=== PATIENT | female | born 1980 | race Caucasian/White ===

== ENCOUNTER 2021-10-26 02:48 | Inpatient (IN) | payer MEDICAID ==
[2021-10-26] MEDS ORDERED: Acetaminophen 500 MG TAB ONE (03:06)
[2021-10-26] MEDS ORDERED: cefTRIAXone\\ROCEPHIN 1 GM VIAL ONE (03:07)
[2021-10-26 03:13] LABS: #Eosinphils 0.2 10x3/uL (0.0-0.5); #Monocytes 0.9 10x3/uL (0.0-1.1); #Neutrophils 7.3 10x3/uL (1.5-8.4); %Basophils 0.4 % (0.0-2.0); %Lymphocytes 14.8 % (18.0-47.0); %Monocytes 9.1 % (0.0-10.0); %Neutrophils 73.2 % (40.0-75.0); Hemoglobin 13.7 g/dL (12.0-15.5); Mean Corpuscular HGB CONC 29.8 g/dL (32.0-36.0); Mean Corpuscular Hemoglobin 26.5 pg (27.0-33.0); Mean Corpuscular Volume 88.8 fl (81.6-98.3); Mean Platelet Volume 11.3 fl (7.4-10.4); Platelet Count 215 10x3/uL (150-450); RBC Distribution Width 15.9 % (11.5-14.5); Red Blood Cell (RBC) Count 5.17 10x6/uL (3.90-5.03)
[2021-10-26 03:28] LABS: ALT (SGPT) 20 U/L (8-55); AST (SGOT) 23 U/L (5-34); Albumin 3.8 g/dL (3.5-5.0); Alkaline Phosphatase 69 U/L (40-110); Anion Gap 11 mmol/L (10-20); BUN (Urea Nitrogen) 12 mg/dL (7.0-18.7); Bilirubin, Total 0.6 mg/dL (0.2-1.2); Calc. Creatinine Clearance 0 mL/min (70-130); Calcium 8.7 mg/dL (7.8-10.44); Carbon Dioxide 29 mmol/L (22-29); Chloride 101 mmol/L (98-107); Globulin 3.4 g/dL (2.4-3.5); Glucose 143 mg/dL (70-105); Protein, Total 7.2 g/dL (6.0-8.3); Sodium 137 mmol/L (136-145)
[2021-10-26 03:30] LABS: Platelet Morphology Comment Appears Adequate; RBC Morphology Normal
[2021-10-26] MEDS ORDERED: Aspirin Chewable 81 MG TAB ONE (03:42)
[2021-10-26] MEDS ORDERED: Enoxaparin Sodium 60 MG/0.6 ML SYRINGE ONE (03:42)
[2021-10-26] MEDS ORDERED: Azithromycin 500 MG VIAL ONE (03:42)
[2021-10-26] MEDS ORDERED: Enoxaparin Sodium 100 MG/ML SYRINGE ONE (03:42)
[2021-10-26 03:49] LABS: CKMB 6.1 ng/mL (0-6.6)
[2021-10-26] MEDS ORDERED: methylPREDNISolone Sod Succ/PF 125 MG/2 ML VIAL ONE (04:32)
[2021-10-26] MEDS ORDERED: Senokot S 8.6-50 MG TAB PO PRN (04:59)
[2021-10-26] MEDS ORDERED: Calcium Carbonate 500 MG ChewTAB PO PRN (04:59)
[2021-10-26] MEDS ORDERED: Ondansetron PF 4 MG/2 ML Vial IVP PRN (04:59)
[2021-10-26] MEDS ORDERED: Guaifenesin DM 100-10/5 ML UDCUP PO PRN (04:59)
[2021-10-26 05:04] LABS: SARS-CoV-2 NAA Rapid Test DETECTED (NotDetected)
[2021-10-26 07:52] VITALS: BMI 79.6
[2021-10-26] MEDS: Benzonatate 100 MG CAP PO SCH ×3 (08:31→20:45)
[2021-10-26] MEDS: Aspirin 81 mg Enteric Coated Tablet PO SCH (08:31)
[2021-10-26] MEDS: Furosemide 20 MG TAB PO SCH (08:32)
[2021-10-26] MEDS: Dexamethasone 20 MG/5 ML VIAL SLOW IVP SCH ×2 (08:32→20:45)
[2021-10-26] MEDS: Pantoprazole 40 MG VIAL IVP SCH (08:32)
[2021-10-26] MEDS: Losartan Potassium 50 MG TAB PO SCH (08:32)
[2021-10-26] MEDS ORDERED: Famotidine/PF 20 mg/2ml Vial SLOW IVP SCH (09:00)
[2021-10-26] MEDS ORDERED: Dexamethasone 4 mg/ml Vial SLOW IVP SCH (09:00)
[2021-10-26 09:53] LABS: CKMB 6.6 ng/mL (0-6.6)
[2021-10-26] MEDS ORDERED: [UNRECOGNIZED DRUG - REMARK] FS SCH (11:15)
[2021-10-26] MEDS ORDERED: [UNRECOGNIZED DRUG - REMARK] FS SCH (11:15)
[2021-10-26] MEDS: Ventolin HFA Inhaler 60 PUFF INHALER INH SCH ×4 (11:23→22:53)
[2021-10-26] MEDS ORDERED: methylPREDNISolone Sod Succ/PF 125 MG/2 ML VIAL IVP SCH (12:00)
[2021-10-26] MEDS ORDERED: Iopamidol 370 76% 100 ML VIAL ONE (12:38)
[2021-10-26 14:03] LABS: Legionella Urinary Ag Negative (Negative); Strep pneumo Urine Ag NEGATIVE (NEGATIVE)
[2021-10-26] MEDS: Enoxaparin Sodium 40 MG/0.4 ML SYRINGE SC SCH (20:45)
[2021-10-26] MEDS: Acetaminophen 325 MG TAB PO PRN (21:10)
[2021-10-27] MEDS: Ventolin HFA Inhaler 60 PUFF INHALER INH SCH ×6 (03:30→22:56)
[2021-10-27] MEDS ORDERED: cefTRIAXone\\ROCEPHIN 2 GM in Sodium Chloride 0.9% 100 ML IVPB SCH (04:00)
[2021-10-27 05:19] LABS: #Monocytes 0.5 10x3/uL (0.0-1.1); #Neutrophils 7.7 10x3/uL (1.5-8.4); %Basophils 0.3 % (0.0-2.0); %Lymphocytes 7.2 % (18.0-47.0); %Monocytes 5.5 % (0.0-10.0); %Neutrophils 83.6 % (40.0-75.0); Hemoglobin 12.8 g/dL (12.0-15.5); Mean Corpuscular Hemoglobin 26.2 pg (27.0-33.0); Mean Corpuscular Volume 90.4 fl (81.6-98.3); Mean Platelet Volume 11.5 fl (7.4-10.4); Platelet Count 217 10x3/uL (150-450); RBC Distribution Width 15.7 % (11.5-14.5); Red Blood Cell (RBC) Count 4.88 10x6/uL (3.90-5.03); White Blood Cell (WBC) Count 9.2 10x3/uL (3.5-10.5)
[2021-10-27 05:27] LABS: Anion Gap 13 mmol/L (10-20); BUN (Urea Nitrogen) 13 mg/dL (7.0-18.7); Calc. Creatinine Clearance 278 mL/min (70-130); Calcium 8.5 mg/dL (7.8-10.44); Carbon Dioxide 32 mmol/L (22-29); Chloride 100 mmol/L (98-107); Estimated GFR 105; Glucose 219 mg/dL (70-105); Potassium 5.2 mmol/L (3.5-5.1); Sodium 140 mmol/L (136-145)
[2021-10-27 05:46] LABS: Basophilic Stippling SLIGHT = 1-2 cells (100X) (None Seen); Hypochromia SLIGHT = 6-15 cells (100X) (0-5/hpf); Platelet Morphology Comment Appears Adequate
[2021-10-27] MEDS: Azithromycin 500 MG in Sodium Chloride 0.9% 250 ML 250 ML IVPB SCH (06:32)
[2021-10-27] MEDS: Furosemide 20 MG TAB PO SCH (08:22)
[2021-10-27] MEDS: Benzonatate 100 MG CAP PO SCH ×3 (08:22→20:25)
[2021-10-27] MEDS: Pantoprazole 40 MG VIAL IVP SCH (08:22)
[2021-10-27] MEDS: Dexamethasone 20 MG/5 ML VIAL SLOW IVP SCH ×2 (08:22→20:25)
[2021-10-27] MEDS: Aspirin 81 mg Enteric Coated Tablet PO SCH (08:23)
[2021-10-27] MEDS ORDERED: NIFEdipine XL 60 MG TAB PO SCH (11:00)
[2021-10-27 12:46] LABS: Hemoglobin A1c 5.9 % (4.0-6.0)
[2021-10-27] MEDS: Enoxaparin Sodium 40 MG/0.4 ML SYRINGE SC SCH (20:25)
[2021-10-28] MEDS: Ventolin HFA Inhaler 60 PUFF INHALER INH SCH ×6 (02:59→22:38)
[2021-10-28 04:35] LABS: #Eosinphils 0.1 10x3/uL (0.0-0.5); #Monocytes 0.7 10x3/uL (0.0-1.1); %Basophils 0.3 % (0.0-2.0); %Eosinophils 0.7 % (0.0-6.0); %Lymphocytes 7.6 % (18.0-47.0); %Monocytes 5.5 % (0.0-10.0); %Neutrophils 84.3 % (40.0-75.0); Hemoglobin 13.2 g/dL (12.0-15.5); Mean Corpuscular HGB CONC 29.2 g/dL (32.0-36.0); Mean Corpuscular Hemoglobin 26.5 pg (27.0-33.0); Mean Corpuscular Volume 90.6 fl (81.6-98.3); Mean Platelet Volume 10.8 fl (7.4-10.4); Platelet Count 228 10x3/uL (150-450); RBC Distribution Width 15.5 % (11.5-14.5); Red Blood Cell (RBC) Count 4.99 10x6/uL (3.90-5.03); White Blood Cell (WBC) Count 11.8 10x3/uL (3.5-10.5)
[2021-10-28] MEDS: Azithromycin 500 MG in Sodium Chloride 0.9% 250 ML 250 ML IVPB SCH (04:59)
[2021-10-28 05:04] LABS: Anion Gap 14 mmol/L (10-20); BUN (Urea Nitrogen) 16 mg/dL (7.0-18.7); Calc. Creatinine Clearance 295 mL/min (70-130); Calcium 8.8 mg/dL (7.8-10.44); Carbon Dioxide 32 mmol/L (22-29); Chloride 98 mmol/L (98-107); Estimated GFR 113; Glucose 198 mg/dL (70-105); Potassium 5.1 mmol/L (3.5-5.1); Sodium 139 mmol/L (136-145)
[2021-10-28] MEDS: Furosemide 20 MG TAB PO SCH (08:54)
[2021-10-28] MEDS: NIFEdipine XL 60 MG TAB PO SCH (08:54)
[2021-10-28] MEDS: Losartan Potassium 50 MG TAB PO SCH (08:54)
[2021-10-28] MEDS: Benzonatate 100 MG CAP PO SCH ×3 (08:54→19:47)
[2021-10-28] MEDS: Dexamethasone 20 MG/5 ML VIAL SLOW IVP SCH ×2 (08:55→19:47)
[2021-10-28] MEDS: Aspirin 81 mg Enteric Coated Tablet PO SCH (08:55)
[2021-10-28] MEDS: Pantoprazole 40 MG VIAL IVP SCH (08:57)
[2021-10-28] MEDS: Acetaminophen 325 MG TAB PO PRN (12:17)
[2021-10-28] MEDS: Enoxaparin Sodium 40 MG/0.4 ML SYRINGE SC SCH (19:47)
[2021-10-29] MEDS: Ventolin HFA Inhaler 60 PUFF INHALER INH SCH ×6 (01:52→22:38)
[2021-10-29 04:43] LABS: Hemoglobin 13.2 g/dL (12.0-15.5); Mean Corpuscular HGB CONC 29.1 g/dL (32.0-36.0); Mean Corpuscular Hemoglobin 26.3 pg (27.0-33.0); Mean Corpuscular Volume 90.4 fl (81.6-98.3); Mean Platelet Volume 11.4 fl (7.4-10.4); Platelet Count 290 10x3/uL (150-450); RBC Distribution Width 15.3 % (11.5-14.5); Red Blood Cell (RBC) Count 5.02 10x6/uL (3.90-5.03); White Blood Cell (WBC) Count 11.7 10x3/uL (3.5-10.5)
[2021-10-29 04:51] LABS: Anion Gap 15 mmol/L (10-20); BUN (Urea Nitrogen) 19 mg/dL (7.0-18.7); Calc. Creatinine Clearance 279 mL/min (70-130); Calcium 8.9 mg/dL (7.8-10.44); Carbon Dioxide 37 mmol/L (22-29); Chloride 96 mmol/L (98-107); Estimated GFR 105; Glucose 175 mg/dL (70-105); Potassium 4.7 mmol/L (3.5-5.1); Sodium 143 mmol/L (136-145)
[2021-10-29 05:49] LABS: MDiff Complete? YES
[2021-10-29 05:51] LABS: Anisocytosis SLIGHT = 6-15 cells (100X) (0-5/hpf); Platelet Morphology Comment Appears Adequate; Stomatocytes SLIGHT = 2-5 cells (100X) (0-1/hpf)
[2021-10-29] MEDS: Azithromycin 500 MG in Sodium Chloride 0.9% 250 ML 250 ML IVPB SCH (05:52)
[2021-10-29 05:56] LABS: Band 4 % (5-11); Lymphocytes 12 % (21-51); Monocytes 6 % (0-10); Neutrophil 78 % (42-75)
[2021-10-29] MEDS: Pantoprazole 40 MG VIAL IVP SCH (08:24)
[2021-10-29] MEDS: Dexamethasone 20 MG/5 ML VIAL SLOW IVP SCH ×2 (08:24→21:26)
[2021-10-29] MEDS: Benzonatate 100 MG CAP PO SCH ×3 (08:25→21:26)
[2021-10-29] MEDS: Losartan Potassium 50 MG TAB PO SCH (08:25)
[2021-10-29] MEDS: Aspirin 81 mg Enteric Coated Tablet PO SCH (08:25)
[2021-10-29] MEDS: NIFEdipine XL 60 MG TAB PO SCH (08:25)
[2021-10-29] MEDS: Furosemide 20 MG TAB PO SCH (08:25)
[2021-10-29] MEDS ORDERED: hydrALAZINE 20 MG/ML VIAL SLOW IVP PRN (17:33)
[2021-10-29] MEDS: Enoxaparin Sodium 40 MG/0.4 ML SYRINGE SC SCH (21:25)
[2021-10-29] MEDS: Acetaminophen 325 MG TAB PO PRN (21:26)
[2021-10-30] MEDS: Ventolin HFA Inhaler 60 PUFF INHALER INH SCH ×6 (01:35→22:54)
[2021-10-30] MEDS: Azithromycin 500 MG in Sodium Chloride 0.9% 250 ML 250 ML IVPB SCH (05:16)
[2021-10-30 05:27] LABS: #Monocytes 0.8 10x3/uL (0.0-1.1); #Neutrophils 9.4 10x3/uL (1.5-8.4); %Basophils 0.3 % (0.0-2.0); %Lymphocytes 11.3 % (18.0-47.0); %Monocytes 6.5 % (0.0-10.0); %Neutrophils 79.9 % (40.0-75.0); Hemoglobin 13.7 g/dL (12.0-15.5); Mean Corpuscular Hemoglobin 26.2 pg (27.0-33.0); Mean Corpuscular Volume 87.2 fl (81.6-98.3); Mean Platelet Volume 10.9 fl (7.4-10.4); Platelet Count 318 10x3/uL (150-450); RBC Distribution Width 15.7 % (11.5-14.5); Red Blood Cell (RBC) Count 5.23 10x6/uL (3.90-5.03); White Blood Cell (WBC) Count 11.8 10x3/uL (3.5-10.5)
[2021-10-30 05:45] LABS: Anion Gap 16 mmol/L (10-20); BUN (Urea Nitrogen) 21 mg/dL (7.0-18.7); Calc. Creatinine Clearance 291 mL/min (70-130); Calcium 9.2 mg/dL (7.8-10.44); Carbon Dioxide 34 mmol/L (22-29); Chloride 96 mmol/L (98-107); Estimated GFR 111; Glucose 144 mg/dL (70-105); Sodium 141 mmol/L (136-145)
[2021-10-30] MEDS: Aspirin 81 mg Enteric Coated Tablet PO SCH (08:26)
[2021-10-30] MEDS: Furosemide 20 MG TAB PO SCH (08:26)
[2021-10-30] MEDS: Losartan Potassium 50 MG TAB PO SCH (08:26)
[2021-10-30] MEDS: Benzonatate 100 MG CAP PO SCH ×3 (08:26→20:02)
[2021-10-30] MEDS: Dexamethasone 20 MG/5 ML VIAL SLOW IVP SCH ×2 (08:26→20:01)
[2021-10-30] MEDS: NIFEdipine XL 60 MG TAB PO SCH (08:26)
[2021-10-30] MEDS: Pantoprazole 40 MG VIAL IVP SCH (08:27)
[2021-10-30 12:33] LABS: Hemoglobin A1c 5.9 % (4.0-6.0)
[2021-10-30] MEDS ORDERED: NIFEdipine XL 30 MG TAB PO SCH (16:30)
[2021-10-30] MEDS: cefTRIAXone\\ROCEPHIN 2 GM in Sodium Chloride 0.9% 100 ML IVPB SCH (17:03)
[2021-10-30] MEDS: Enoxaparin Sodium 40 MG/0.4 ML SYRINGE SC SCH (20:03)
[2021-10-31] MEDS: Ventolin HFA Inhaler 60 PUFF INHALER INH SCH ×5 (02:58→19:20)
[2021-10-31 04:14] LABS: Actual Bicarbonate (HCO3v) 35 mEq/L (22-28); Base Excess 8.8 mEq/L (-2.0 to +3.0); Calcium, Ionized (venous) 1.12 mmol/L (1.16-1.32); Chloride (VBG) 97 mmol/L (98-106); Hemoglobin (Hb) 15.3 g/dL (11.7-15.5); Potassium (VBG) 4.61 mmol/L (3.70-5.30); Puncture Site Other Site; Sodium 138.4 mmol/L (133-146); pH (venous) 7.43 (7.32-7.43)
[2021-10-31 04:31] LABS: #Monocytes 0.7 10x3/uL (0.0-1.1); %Basophils 0.2 % (0.0-2.0); %Eosinophils 0.1 % (0.0-6.0); %Lymphocytes 10.9 % (18.0-47.0); %Monocytes 5.9 % (0.0-10.0); %Neutrophils 80.5 % (40.0-75.0); Hemoglobin 14.3 g/dL (12.0-15.5); Mean Corpuscular HGB CONC 30.7 g/dL (32.0-36.0); Mean Corpuscular Hemoglobin 26.1 pg (27.0-33.0); Mean Corpuscular Volume 85.2 fl (81.6-98.3); Mean Platelet Volume 10.4 fl (7.4-10.4); Platelet Count 351 10x3/uL (150-450); RBC Distribution Width 15.4 % (11.5-14.5); Red Blood Cell (RBC) Count 5.47 10x6/uL (3.90-5.03); White Blood Cell (WBC) Count 12.4 10x3/uL (3.5-10.5)
[2021-10-31 04:57] LABS: ALT (SGPT) 27 U/L (8-55); AST (SGOT) 19 U/L (5-34); Albumin 3.6 g/dL (3.5-5.0); Alkaline Phosphatase 63 U/L (40-110); Anion Gap 15 mmol/L (10-20); BUN (Urea Nitrogen) 23 mg/dL (7.0-18.7); Bilirubin, Direct 0.2 mg/dL (0.1-0.3); Bilirubin, Total 0.5 mg/dL (0.2-1.2); CRP (Inflammatory) Less than 0.50 mg/dL (= or < 0.5); Calc. Creatinine Clearance 271 mL/min (70-130); Calcium 9.2 mg/dL (7.8-10.44); Carbon Dioxide 36 mmol/L (22-29); Cardiac Risk 4.1 (Less than 4.5); Chloride 96 mmol/L (98-107); Cholesterol 180 mg/dl (< 200 Desired); Estimated GFR 102; Glucose 151 mg/dL (70-105); HDL Cholesterol 44 mg/dL (>60 Neg Risk); LDL Cholesterol, Calculated 119 mg/dL; Magnesium 2.1 mg/dL (1.6-2.6); Potassium 4.7 mmol/L (3.5-5.1); Sodium 142 mmol/L (136-145); Triglycerides 83 mg/dL (Less than 150)
[2021-10-31] MEDS: Azithromycin 500 MG in Sodium Chloride 0.9% 250 ML 250 ML IVPB SCH (05:45)
[2021-10-31] MEDS: Losartan Potassium 50 MG TAB PO SCH (09:48)
[2021-10-31] MEDS: NIFEdipine XL 90 MG TAB PO SCH (09:48)
[2021-10-31] MEDS: Dexamethasone 20 MG/5 ML VIAL SLOW IVP SCH ×2 (09:48→20:19)
[2021-10-31] MEDS: Furosemide 20 MG TAB PO SCH (09:48)
[2021-10-31] MEDS: Pantoprazole 40 MG VIAL IVP SCH (09:48)
[2021-10-31] MEDS: Aspirin 81 mg Enteric Coated Tablet PO SCH (09:48)
[2021-10-31] MEDS: Benzonatate 100 MG CAP PO SCH ×3 (09:48→20:19)
[2021-10-31] MEDS: cefTRIAXone\\ROCEPHIN 2 GM in Sodium Chloride 0.9% 100 ML IVPB SCH (16:21)
[2021-10-31] MEDS: Acetaminophen 325 MG TAB PO PRN (16:21)
[2021-10-31] MEDS: Enoxaparin Sodium 40 MG/0.4 ML SYRINGE SC SCH (20:19)
[2021-11-01] MEDS: Ventolin HFA Inhaler 60 PUFF INHALER INH SCH ×5 (00:11→14:47)
[2021-11-01] MEDS ORDERED: Melatonin 3 MG TAB PO SCH (01:00)
[2021-11-01 04:20] LABS: Hemoglobin 14.1 g/dL (12.0-15.5); Mean Corpuscular HGB CONC 31.3 g/dL (32.0-36.0); Mean Corpuscular Hemoglobin 26.5 pg (27.0-33.0); Mean Corpuscular Volume 84.4 fl (81.6-98.3); Mean Platelet Volume 10.2 fl (7.4-10.4); Platelet Count 361 10x3/uL (150-450); RBC Distribution Width 15.3 % (11.5-14.5); Red Blood Cell (RBC) Count 5.33 10x6/uL (3.90-5.03); White Blood Cell (WBC) Count 13.3 10x3/uL (3.5-10.5)
[2021-11-01] MEDS: Azithromycin 500 MG in Sodium Chloride 0.9% 250 ML 250 ML IVPB SCH (04:33)
[2021-11-01 04:39] LABS: MDiff Complete? YES; Manual Diff?? YES
[2021-11-01 04:43] LABS: Anion Gap 16 mmol/L (10-20); BUN (Urea Nitrogen) 23 mg/dL (7.0-18.7); Band 1 % (5-11); Calc. Creatinine Clearance 275 mL/min (70-130); Calcium 8.9 mg/dL (7.8-10.44); Carbon Dioxide 33 mmol/L (22-29); Chloride 97 mmol/L (98-107); Estimated GFR 104; Glucose 162 mg/dL (70-105); Lymphocytes 7 % (21-51); Magnesium 2.2 mg/dL (1.6-2.6); Monocytes 7 % (0-10); Neutrophil 84 % (42-75); Potassium 4.5 mmol/L (3.5-5.1); Reactive Lymphocytes 1 % (0-10); Sodium 141 mmol/L (136-145)
[2021-11-01 04:44] LABS: Anisocytosis SLIGHT = 6-15 cells (100X) (0-5/hpf); Macrocytosis SLIGHT = 6-15 cells (100X) (0-5/hpf); Microcytosis SLIGHT = 6-15 cells (100X) (0-5/hpf); Platelet Morphology Comment Appears Adequate
[2021-11-01 04:45] LABS: Stomatocytes SLIGHT = 2-5 cells (100X) (0-1/hpf)
[2021-11-01] MEDS ORDERED: Amoxicillin/Potassium Clav 875 MG TAB PO SCH (09:00)
[2021-11-01] MEDS ORDERED: Dexamethasone 4 MG TAB PO SCH ×2 (09:15→17:00)
[2021-11-01] MEDS: Furosemide 20 MG TAB PO SCH (09:17)
[2021-11-01] MEDS: NIFEdipine XL 90 MG TAB PO SCH (09:17)
[2021-11-01] MEDS: Benzonatate 100 MG CAP PO SCH (09:17)
[2021-11-01] MEDS: Losartan Potassium 50 MG TAB PO SCH (09:17)
[2021-11-01] MEDS: Aspirin 81 mg Enteric Coated Tablet PO SCH (09:18)
[2021-11-01 12:15] VITALS: BP 122/55; TEMP 98.1
== END 2021-11-01 16:20 | disposition home or self-care (01) | DRG 871 ==
LOC: CSHERS 02:48 → CSHICU 07:30 → CSHTELE 10-29 19:53
PROVIDERS: ADMIT Internal Medicine; ATTEND Family Medicine
PROC: 8E0ZXY6 Isolation (ICD-10-PCS; principal; 2021-10-26)
PROC: 5A0945A Assistance with Respiratory Ventilation, 24-96 Consecutive Hours, High Flow/Velocity Cannula (ICD-10-PCS; 2021-10-26)
PROC: 3E03329 Introduction of Other Anti-infective into Peripheral Vein, Percutaneous Approach (ICD-10-PCS; 2021-10-26)
DX: A41.9 Sepsis, unspecified organism (principal); U07.1 COVID-19; J12.82 Pneumonia due to coronavirus disease 2019; J96.01 Acute respiratory failure with hypoxia; J45.21 Mild intermittent asthma with (acute) exacerbation; Z68.45 Body mass index [BMI] 70 or greater, adult; I50.32 Chronic diastolic (congestive) heart failure; R79.89 Other specified abnormal findings of blood chemistry; E66.01 Morbid (severe) obesity due to excess calories; R73.9 Hyperglycemia, unspecified; R65.20 Severe sepsis without septic shock; I11.0 Hypertensive heart disease with heart failure; E87.5 Hyperkalemia; Z86.16 Personal history of COVID-19; Z90.710 Acquired absence of both cervix and uterus; Z82.49 Family history of ischemic heart disease and other diseases of the circulatory system; Z80.1 Family history of malignant neoplasm of trachea, bronchus and lung; Z87.891 Personal history of nicotine dependence
CPT/HCPCS: 36415; 71045; 71275; 80048; 80053; 80061; 80076; 82553; 82805; 83036; 83605; 83735; 83880; 84145; 84443; 84484; 85025; 85379; 86140; 87040; 87081; 87449; 87899; 93005; 93306; 94640; 94660; 94664; 94760; 96361; 96365; 96367; 96372; 96375; 99292; C9113; J0360; J0456; J0696; J1100; J1650; J2930; J3490; J7050; J8540; Q9967; U0002